=== PATIENT | female | born 1990 ===

== ENCOUNTER 2021-03-07 16:41 | Emergency (ER) | payer OTHER ==
[~2021-03-07] VITALS: Ht 149.9 cm; Wt 47.0 kg
--- NOTE | 2021-03-07 17:26 | NUR ---
DIZZINESS, FEELS LIKE EVERYTHING IS MOVING AROUND, SINCE TUESDAY. SEEN FOR SAME AT AND GIVEN MECLIZINE AND PROMETHEZINE BUT NOT IMPROVING. PT HAD BEEN VOMITING AND NOW NAUSEATED, DIZZY.
[2021-03-07] MEDS ORDERED: DIAZEPAM 5 MG TABLET ONE (17:51)
[2021-03-07] MEDS ORDERED: DIAZEPAM 5 MG TABLET PO ONE (18:00)
[2021-03-07 18:04] VITALS: BP 123/76
--- NOTE | 2021-03-07 18:05 | NUR ---
Pt to and from CT scan via tech. Pt at bedside. pt on monitor. pt aware plan of care awaiting results.
[2021-03-07 18:10] LABS: BASOPHILS % (AUTO) 1 % (0-1); EOSINOPHILS % (AUTO) 0 % (1-7); LYMPHOCYTES % (AUTO) 22 % (22-44); MD NO; MEAN CORPUSCULAR HEMOGLOBIN 29.4 pg (27.0-34.8); MEAN CORPUSCULAR HGB CONC 34.4 g/dL (32.4-35.8); MEAN PLATELET VOLUME 7.4 fL (7.4-10.4); MONOCYTES % (AUTO) 7 % (2-9); NEUTROPHILS % (AUTO) 70 % (42-75); PLATELET COUNT 456 x10^3/uL (130-400); RED CELL DISTRIBUTION WIDTH 12.8 % (9.6-15.2)
[2021-03-07 18:21] LABS: ALBUMIN 4.4 g/dL (3.4-5.0); ANION GAP 4 mmol/L (5-15); CALCIUM 9.3 mg/dL (8.5-10.1); CHLORIDE 108 mmol/L (98-107)
[2021-03-07 18:24] LABS: ALANINE AMINOTRANSFERASE 33 U/L (12-78); ALKALINE PHOSPHATASE 68 U/L (45-117); BILIRUBIN,TOTAL 0.3 mg/dL (0.2-1.0); CREATININE 0.61 mg/dL (0.55-1.02); TOTAL PROTEIN 8.5 g/dL (6.4-8.2)
--- NOTE | 2021-03-07 18:32 | NUR ---
pt and aware to follow up with ENT. Dr. Hager
== END 2021-03-07 18:35 | disposition home or self-care (01) ==
LOC: ED 18:29
DX: H83.01 Labyrinthitis, right ear (principal); R51.9 Headache, unspecified; R11.2 Nausea with vomiting, unspecified; R42 Dizziness and giddiness; Z79.899 Other long term (current) drug therapy
CPT/HCPCS: 36415; 70450; 80053; 85025; 93005; 99285